=== PATIENT | female | born 1970 | race African-American/Black ===

== ENCOUNTER 2017-10-06 21:31 | Emergency (ER) | payer MEDICAID ==
[~2017-10-06] VITALS: Ht 170.2 cm; Wt 94.0 kg
[2017-10-07 05:49] LABS: *AMPHETAMINES SCREEN URINE NEGATIVE (NEGATIVE); *BARBITURATES SCREEN URINE NEGATIVE (NEGATIVE); *BENZODIAZEPINES SCREEN URINE NEGATIVE (NEGATIVE); *COCAINE SCREEN URINE NEGATIVE (NEGATIVE); CANNABINOID URINE SCREEN NEGATIVE (NEGATIVE); METHADONE URINE SCREEN NEGATIVE (NEGATIVE); OPIATES URINE SCREEN NEGATIVE (NEGATIVE); PHENCYCLIDINE URINE SCREEN NEGATIVE (NEGATIVE)
[2017-10-07 11:26] VITALS: BP 151/92
== END 2017-10-07 11:40 | disposition home or self-care (01) ==
LOC: ER 21:31
DX: R53.83 Other fatigue (principal); Z59.0 Homelessness; Z88.5 Allergy status to narcotic agent
CPT/HCPCS: 80305; 81025; 99283

== ENCOUNTER 2018-04-03 11:29 | Emergency (ER) | payer MEDICAID ==
[~2018-04-03] VITALS: Ht 172.7 cm; Wt 98.0 kg
[2018-04-03 11:40] VITALS: BP 175/99
== END 2018-04-03 17:41 | disposition left against medical advice (07) ==
LOC: ER 11:29
DX: R21 Rash and other nonspecific skin eruption (principal)
CPT/HCPCS: 99281

== ENCOUNTER 2018-08-21 04:30 | Emergency (ER) | payer MEDICAID ==
[~2018-08-21] VITALS: Ht 167.6 cm; Wt 90.0 kg
[2018-08-21] MEDS ORDERED: ACETAMINOPHEN 325MG TABLET PO ONE (06:15)
[2018-08-21 07:30] VITALS: BP 143/94
== END 2018-08-21 08:34 | disposition home or self-care (01) ==
LOC: ER 04:30
DX: M25.512 Pain in left shoulder (principal); M25.511 Pain in right shoulder; J45.909 Unspecified asthma, uncomplicated; I10 Essential (primary) hypertension; Z88.5 Allergy status to narcotic agent
CPT/HCPCS: 99283

== ENCOUNTER 2019-03-03 22:36 | Emergency (ER) | payer MEDICAID ==
[~2019-03-03] VITALS: Ht 167.6 cm; Wt 75.0 kg
[2019-03-04 01:49] LABS: BASOPHILS % 1.4 % (0.0-2.0); EOSINOPHILS % 3.1 % (0.0-5.0); HEMATOCRIT. 38.4 % (36.0-48.0); MEAN CORPUSCULAR HEMOGLOBIN 29.8 pg (28.0-32.0); MEAN PLATELET VOLUME 8.5 fl (7.4-10.4); MONOCYTES % 5.5 % (2.0-8.0); PLATELET 233 x1000/uL (130-400); RED BLOOD CELL COUNT 4.37 mill/uL (4.2-5.4); RED CELL DISTRIBUTION WIDTH 13.7 % (11.6-14.6)
[2019-03-04 01:54] LABS: CHLORIDE 108 mEq/L (98-107)
[2019-03-04] MEDS ORDERED: IBUPROFEN 600MG TABLET PO STA (02:14)
[2019-03-04] MEDS ORDERED: BACITRACIN ZINC OINT UDPKT TOP ONE (02:30)
[2019-03-04 02:43] VITALS: BP 148/74
== END 2019-03-04 02:43 | disposition home or self-care (01) ==
LOC: ER 22:36
DX: M79.89 Other specified soft tissue disorders (principal); M79.605 Pain in left leg; M79.604 Pain in right leg; I10 Essential (primary) hypertension; F14.10 Cocaine abuse, uncomplicated; Z87.891 Personal history of nicotine dependence; Z88.5 Allergy status to narcotic agent
CPT/HCPCS: 36415; 80048; 99283

== ENCOUNTER 2021-08-15 16:05 | Emergency (ER) | payer MEDICAID, OTHER ==
[~2021-08-15] VITALS: Ht 170.2 cm; Wt 120.0 kg
[2021-08-15] MEDS ORDERED: ALBUTEROL (0.083%) 2.5MG/3ML NEB HHN STA (16:28)
[2021-08-15] MEDS ORDERED: METHYLPREDNISOLONE SOD SUCC 125 MG/2 ML VIAL IV STA (16:28)
[2021-08-15] MEDS ORDERED: IPRATROPIUM BROMIDE (0.02%) 0.5MG/2.5ML NEB HHN STA (16:28)
[2021-08-15 17:11] LABS: BASOPHILS % 0.7 % (0.0-2.0); EOSINOPHILS % 2.3 % (0.0-5.0); HEMATOCRIT. 41.6 % (36.0-48.0); HEMOGLOBIN. 13.5 g/dL (12.0-16.0); LYMPHOCYTES % 18.9 % (20.0-50.0); MEAN CORPUSCULAR VOLUME 89.3 fL (81.0-99.0); MEAN PLATELET VOLUME 8.6 fl (7.4-10.4); NEUTROPHILS % 66.1 % (40.0-76.0); PLATELET 183 x1000/uL (130-400); RED BLOOD CELL COUNT 4.66 mill/uL (4.2-5.4); RED CELL DISTRIBUTION WIDTH 14.3 % (11.6-14.6)
[2021-08-15 17:16] LABS: CHLORIDE 107 mEq/L (98-107)
[2021-08-15] MEDS ORDERED: P50 MT (18:44)
[2021-08-15] MEDS ORDERED: ALBU2.5V13 NEB (18:45)
[2021-08-15 19:38] VITALS: BP 175/93
[2021-08-26] MEDS ORDERED: ATEN50TA MT (21:57)
[2021-08-26] MEDS ORDERED: ALBU90AE INH (21:58)
[2021-08-26] MEDS ORDERED: AMLO10TA80 MT (21:58)
[2021-08-26] MEDS ORDERED: BUDE6.9H INH (21:59)
== END 2021-08-15 19:58 | disposition home or self-care (01) ==
LOC: ER 16:05
DX: J45.901 Unspecified asthma with (acute) exacerbation (principal); F17.290 Nicotine dependence, other tobacco product, uncomplicated; J45.909 Unspecified asthma, uncomplicated; I10 Essential (primary) hypertension; Z88.5 Allergy status to narcotic agent; Z20.822 Contact with and (suspected) exposure to COVID-19
CPT/HCPCS: 36415; 71045; 80053; 85025; 87426; 93005; 94644; 96374; 99285; J2930; Z7610

== ENCOUNTER 2022-07-21 19:59 | Emergency (ER) | payer OTHER ==
[~2022-07-21] VITALS: Ht 180.3 cm; Wt 109.0 kg
[~2022-07-21 19:59] MED LIST: ALBU90AE INH; AMLO10TA80 MT; ATEN50TA MT; BUDE6.9H INH
[2022-07-21 20:30] VITALS: BP 116/82
[2022-07-21] MEDS ORDERED: IBUPROFEN 400MG TABLET PO ONE (20:30)
[2022-07-21 22:48] LABS: BASOPHILS % 1.2 % (0.0-2.0); CHLORIDE 105 mEq/L (98-107); EOSINOPHILS % 2.7 % (0.0-5.0); HEMATOCRIT. 38.6 % (36.0-48.0); HEMOGLOBIN. 11.9 g/dL (12.0-16.0); LYMPHOCYTES % 14.1 % (20.0-50.0); MEAN CORPUSCULAR HEMOGLOBIN 25.9 pg (28.0-32.0); MEAN CORPUSCULAR VOLUME 84.4 fL (81.0-99.0); MEAN PLATELET VOLUME 8.8 fl (7.4-10.4); MONOCYTES % 8.8 % (2.0-8.0); NEUTROPHILS % 73.2 % (40.0-76.0); PLATELET 272 x1000/uL (130-400); RED BLOOD CELL COUNT 4.58 mill/uL (4.2-5.4); RED CELL DISTRIBUTION WIDTH 17.2 % (11.6-14.6)
[2022-07-21] MEDS ORDERED: IBUP-2028 MT (23:11)
== END 2022-07-21 23:25 | disposition home or self-care (01) ==
LOC: ER 19:59
DX: M79.604 Pain in right leg (principal); M79.605 Pain in left leg; R07.89 Other chest pain; D64.9 Anemia, unspecified; I11.0 Hypertensive heart disease with heart failure; I50.9 Heart failure, unspecified; J45.909 Unspecified asthma, uncomplicated; Z79.899 Other long term (current) drug therapy
CPT/HCPCS: 36415; 71045; 80053; 83880; 84484; 85025; 85379; 93005; 93970; 99285

== ENCOUNTER 2023-02-21 08:45 | Emergency (ER) | payer OTHER ==
[~2023-02-21] VITALS: Ht 170.2 cm; Wt 142.0 kg
[~2023-02-21 08:45] MED LIST changes: +ALBU6.7H3 INH; -ALBU90AE INH; -AMLO10TA80 MT; +AMLO5TAB88 MT; -ATEN50TA MT; -BUDE6.9H INH
[2023-02-21] MEDS ORDERED: IPRATROPIUM BROMIDE (0.02%) 0.5MG/2.5ML NEB HHN STA (08:53)
[2023-02-21] MEDS ORDERED: PREDNISONE 20MG TABLET PO STA (08:53)
[2023-02-21] MEDS ORDERED: ALBUTEROL (0.083%) 2.5MG/3ML NEB HHN STA (08:53)
[2023-02-21] MEDS ORDERED: ALBU6.7H3 INH (11:16)
[2023-02-21] MEDS ORDERED: P50 MT (11:16)
[2023-02-21] MEDS ORDERED: ALBUTEROL (0.083%) 2.5MG/3ML NEB ONE (11:25)
[2023-02-21] MEDS ORDERED: IPRATROPIUM BROMIDE (0.02%) 0.5MG/2.5ML NEB ONE (11:25)
[2023-02-21] MEDS ORDERED: PREDNISONE 20MG TABLET PO NR (11:30)
[2023-02-21 12:18] VITALS: BP 169/110
== END 2023-02-21 12:18 | disposition home or self-care (01) ==
LOC: ER 08:45
DX: J45.901 Unspecified asthma with (acute) exacerbation (principal); F17.290 Nicotine dependence, other tobacco product, uncomplicated; I10 Essential (primary) hypertension; E11.9 Type 2 diabetes mellitus without complications
CPT/HCPCS: 71045; 94640; 99283; 99406; J7512; Z7610

== ENCOUNTER 2023-04-17 13:34 | Emergency (ER) | payer OTHER ==
[~2023-04-17] VITALS: Ht 167.6 cm; Wt 113.0 kg
[~2023-04-17 13:34] MED LIST changes: +P50 MT
[2023-04-17 14:23] LABS: BASOPHILS % 0.4 % (0.0-2.0); EOSINOPHILS % 0.3 % (0.0-5.0); HEMOGLOBIN. 11.4 g/dL (12.0-16.0); LYMPHOCYTES % 9.6 % (20.0-50.0); MEAN CORPUSCULAR HEMOGLOBIN 26.2 pg (28.0-32.0); MEAN CORPUSCULAR VOLUME 82.9 fL (81.0-99.0); MONOCYTES % 6.2 % (2.0-8.0); NEUTROPHILS % 83.5 % (40.0-76.0); PLATELET 289 x1000/uL (130-400); RED BLOOD CELL COUNT 4.34 mill/uL (4.2-5.4); RED CELL DISTRIBUTION WIDTH 16.6 % (11.6-14.6)
[2023-04-17 14:27] LABS: CHLORIDE 108 mEq/L (98-107)
[2023-04-17 16:37] VITALS: BP 147/94
== END 2023-04-17 16:43 | disposition home or self-care (01) ==
LOC: ER 13:34
DX: R07.89 Other chest pain (principal); J45.909 Unspecified asthma, uncomplicated; E11.9 Type 2 diabetes mellitus without complications; I10 Essential (primary) hypertension; F17.200 Nicotine dependence, unspecified, uncomplicated; F12.10 Cannabis abuse, uncomplicated; F15.10 Other stimulant abuse, uncomplicated
CPT/HCPCS: 36415; 71045; 80053; 83880; 84484; 85025; 93005; 99285

== ENCOUNTER 2023-05-06 13:49 | Emergency (ER) | payer OTHER ==
[~2023-05-06] VITALS: Ht 172.7 cm; Wt 150.0 kg
[2023-05-06] MEDS ORDERED: ALBUTEROL (0.083%) 2.5MG/3ML NEB HHN STA (14:04)
[2023-05-06] MEDS ORDERED: IPRATROPIUM BROMIDE (0.02%) 0.5MG/2.5ML NEB HHN STA (14:04)
[2023-05-06] MEDS ORDERED: ASPIRIN 81MG TABLET PO ONE (14:15)
[2023-05-06 14:56] LABS: BASOPHILS % 1.3 % (0.0-2.0); EOSINOPHILS % 5.1 % (0.0-5.0); HEMATOCRIT. 33.9 % (36.0-48.0); HEMOGLOBIN. 10.9 g/dL (12.0-16.0); LYMPHOCYTES % 15.7 % (20.0-50.0); MEAN CORPUSCULAR HEMOGLOBIN 26.2 pg (28.0-32.0); MEAN CORPUSCULAR VOLUME 81.6 fL (81.0-99.0); MEAN PLATELET VOLUME 8.8 fl (7.4-10.4); MONOCYTES % 8.5 % (2.0-8.0); NEUTROPHILS % 69.4 % (40.0-76.0); PLATELET 294 x1000/uL (130-400); RED BLOOD CELL COUNT 4.15 mill/uL (4.2-5.4); RED CELL DISTRIBUTION WIDTH 17.4 % (11.6-14.6)
[2023-05-06 15:07] LABS: PARTIAL THROMBOPLASTIN TIME 27.1 sec (23.4-31.0); PROTHROMBIN TIME 10.5 sec (9.6-11.0)
[2023-05-06 15:11] LABS: CHLORIDE 109 mEq/L (98-107)
[2023-05-06 15:21] LABS: ETHANOL BLOOD < 10 mg/dL (-10)
[2023-05-06 17:39] LABS: CLARITY URINE CLOUDY (CLEAR); COLOR URINE YELLOW (YELLOW); KETONES URINE TRACE (NEGATIVE); LEUKOCYTE ESTERASE URINE NEGATIVE (NEGATIVE); NITRITE URINE NEGATIVE (NEGATIVE); OCCULT BLOOD URINE 1+ (NEGATIVE); PH URINE 5.5 (4.5-8.0); PROTEIN URINE NEGATIVE (NEGATIVE); SPECIFIC GRAVITY URINE 1.031 (1.005-1.030)
[2023-05-06 17:50] LABS: *AMPHETAMINES SCREEN URINE NEGATIVE (NEGATIVE); *BARBITURATES SCREEN URINE NEGATIVE (NEGATIVE); *BENZODIAZEPINES SCREEN URINE NEGATIVE (NEGATIVE); *COCAINE SCREEN URINE NEGATIVE (NEGATIVE); CANNABINOID URINE SCREEN NEGATIVE (NEGATIVE); METHADONE URINE SCREEN NEGATIVE (NEGATIVE); OPIATES URINE SCREEN NEGATIVE (NEGATIVE); PHENCYCLIDINE URINE SCREEN NEGATIVE (NEGATIVE)
[2023-05-06 18:56] VITALS: BP 174/97
== END 2023-05-06 19:17 | disposition home or self-care (01) ==
LOC: ER 13:52 → CANBEDREQ 18:02 → ER 19:17
DX: R06.02 Shortness of breath (principal); R07.89 Other chest pain; F12.10 Cannabis abuse, uncomplicated; F15.10 Other stimulant abuse, uncomplicated; I11.0 Hypertensive heart disease with heart failure; I50.9 Heart failure, unspecified; E11.9 Type 2 diabetes mellitus without complications; J45.909 Unspecified asthma, uncomplicated; Z20.822 Contact with and (suspected) exposure to COVID-19
CPT/HCPCS: 36415; 71045; 80053; 80305; 80320; 81003; 83690; 83880; 84484; 85025; 85379; 85610; 85730; 87040; 87426; 87804; 93005; 94640; 99285; C9803; Z7610; G0480

== ENCOUNTER 2023-05-27 13:23 | Emergency (ER) | payer OTHER ==
[~2023-05-27] VITALS: Ht 167.6 cm; Wt 150.0 kg
[~2023-05-27 13:23] MED LIST changes: +ALBU18HF2 IH; -ALBU6.7H3 INH; +FLUT1DIS3 INH; +METF-414 MT
[2023-05-27 13:26] VITALS: BP 135/93; TEMP 97.3
[2023-05-27] MEDS ORDERED: PREDNISONE 20MG TABLET PO STA (13:31)
[2023-05-27] MEDS ORDERED: IPRATROPIUM BROMIDE (0.02%) 0.5MG/2.5ML NEB HHN STA (13:31)
[2023-05-27] MEDS ORDERED: ALBUTEROL (0.083%) 2.5MG/3ML NEB HHN STA (13:31)
[2023-05-27 15:15] VITALS: PULSE 85; RESP 20; O2SAT 97
[2023-05-27 15:29] LABS: CHLORIDE 109 mEq/L (98-107); INDEX HEMOLYSI 1 (1-3); INDEX ICTERIC 1 (1-4); INDEX LIPEMIC 1 (1-3); POTASSIUM 3.6 mEq/L (3.5-5.1); SODIUM 140 mEq/L (136-145)
[2023-05-27 15:38] LABS: ALANINE AMINOTRANSFERASE 30 IU/L (13-61); ASPARTATE AMINOTRANSFERASE 15 IU/L (15-37); BILIRUBIN TOTAL 0.2 mg/dL (0.1-1.0); CALCIUM 8.4 mg/dL (8.5-10.1); CARBON DIOXIDE 29 mEq/L (21-32); CREATININE 0.6 mg/dL (0.6-1.3); GLUCOSE 138 mg/dL (70-105); NT PRO B-TYPE NATRIURETIC PEP 13 pg/mL (5-125); PROTEIN TOTAL 6.5 g/dL (6.0-8.3); TROPONIN I HIGH SENSITIVITY 48 ng/L (<54); UREA NITROGEN BLOOD 10 mg/dL (7-21)
[2023-05-27 16:46] LABS: CLARITY URINE CLOUDY (CLEAR); COLOR URINE YELLOW (YELLOW); GLUCOSE URINE NEGATIVE (NEGATIVE); KETONES URINE NEGATIVE (NEGATIVE); LEUKOCYTE ESTERASE URINE NEGATIVE (NEGATIVE); NITRITE URINE NEGATIVE (NEGATIVE); OCCULT BLOOD URINE NEGATIVE (NEGATIVE); PROTEIN URINE TRACE (NEGATIVE); SPECIFIC GRAVITY URINE 1.027 (1.005-1.030); UROBILINOGEN URINE 0.2 E.U./dL (0.2-1.0)
[2023-05-27 17:08] LABS: BASOPHILS % 0.2 % (0.0-2.0); EOSINOPHILS % 8.4 % (0.0-5.0); HEMATOCRIT. 35.9 % (36.0-48.0); HEMOGLOBIN. 11.2 g/dL (12.0-16.0); LYMPHOCYTES % 15.4 % (20.0-50.0); MEAN CORPUSCULAR HEMOGLOBIN 26.2 pg (28.0-32.0); MEAN CORPUSCULAR HGB CONC 31.1 g/dL (31.0-37.0); MEAN CORPUSCULAR VOLUME 84.3 fL (81.0-99.0); MEAN PLATELET VOLUME 8.8 fl (7.4-10.4); MONOCYTES % 11.1 % (2.0-8.0); NEUTROPHILS % 64.9 % (40.0-76.0); PLATELET 210 x1000/uL (130-400); RED BLOOD CELL COUNT 4.26 mill/uL (4.2-5.4); RED CELL DISTRIBUTION WIDTH 16.2 % (11.6-14.6); WHITE BLOOD COUNT 8.1 x1000/uL (4.5-11.0)
[2023-05-27 17:19] LABS: BACTERIA URINE 3+; RBC URINE 0-2 /hpf (0-2); SQUAMOUS EPITHELIAL CELL URINE 2+ /lpf (RARE/1+); WBC URINE 0-2 /hpf (0-2)
[2023-05-27] MEDS ORDERED: P50 MT (17:32)
[2023-05-27] MEDS ORDERED: ALBU6.7H3 INH (17:32)
[2023-06-07] MEDS ORDERED: P50 MT (03:03)
[2023-06-07] MEDS ORDERED: AZIT250T MT (03:03)
[2023-06-07] MEDS ORDERED: ALBU6.7H3 INH (03:03)
== END 2023-05-27 18:17 | disposition home or self-care (01) ==
LOC: ER 13:23
DX: J45.901 Unspecified asthma with (acute) exacerbation (principal); F14.10 Cocaine abuse, uncomplicated; E11.9 Type 2 diabetes mellitus without complications; I10 Essential (primary) hypertension; J45.909 Unspecified asthma, uncomplicated; Z88.5 Allergy status to narcotic agent; Z79.899 Other long term (current) drug therapy
CPT/HCPCS: 80053; 81003; 81025; 83880; 85025; 84484; 36415; 71045; 94640; 93005; 99285; Z7610 ×3; 94664

== ENCOUNTER 2023-06-14 10:51 | Emergency (ER) | payer OTHER ==
[~2023-06-14] VITALS: Ht 167.6 cm; Wt 149.0 kg
[~2023-06-14 10:51] MED LIST changes: +ALBU6.7H3 INH; +AZIT250T MT
[2023-06-14 10:57] VITALS: BP 143/76; PULSE 112; RESP 16; TEMP 98.2; O2SAT 98
[2023-06-14 11:31] LABS: BASOPHILS % 0.7 % (0.0-2.0); EOSINOPHILS % 4.4 % (0.0-5.0); HEMATOCRIT. 34.5 % (36.0-48.0); HEMOGLOBIN. 11.1 g/dL (12.0-16.0); LYMPHOCYTES % 15.4 % (20.0-50.0); MEAN CORPUSCULAR HEMOGLOBIN 26.1 pg (28.0-32.0); MEAN CORPUSCULAR VOLUME 80.8 fL (81.0-99.0); MEAN PLATELET VOLUME 8.9 fl (7.4-10.4); MONOCYTES % 8.3 % (2.0-8.0); NEUTROPHILS % 71.2 % (40.0-76.0); PLATELET 252 x1000/uL (130-400); RED BLOOD CELL COUNT 4.27 mill/uL (4.2-5.4); RED CELL DISTRIBUTION WIDTH 15.6 % (11.6-14.6)
[2023-06-14 12:22] LABS: CHLORIDE 105 mEq/L (98-107)
[2023-06-14 12:35] LABS: ETHANOL BLOOD < 10 mg/dL (-10)
[2023-06-14 14:55] LABS: *AMPHETAMINES SCREEN URINE NEGATIVE (NEGATIVE); *BARBITURATES SCREEN URINE NEGATIVE (NEGATIVE); *BENZODIAZEPINES SCREEN URINE NEGATIVE (NEGATIVE); *COCAINE SCREEN URINE NEGATIVE (NEGATIVE); CANNABINOID URINE SCREEN NEGATIVE (NEGATIVE); METHADONE URINE SCREEN NEGATIVE (NEGATIVE); OPIATES URINE SCREEN NEGATIVE (NEGATIVE); PHENCYCLIDINE URINE SCREEN NEGATIVE (NEGATIVE)
== END 2023-06-14 15:53 | disposition home or self-care (01) ==
LOC: ER 10:53
DX: R07.89 Other chest pain (principal); F14.10 Cocaine abuse, uncomplicated; I10 Essential (primary) hypertension; E11.9 Type 2 diabetes mellitus without complications; J45.909 Unspecified asthma, uncomplicated; Z88.5 Allergy status to narcotic agent; Z79.899 Other long term (current) drug therapy
CPT/HCPCS: 36415; 71045; 80053; 80305; 80320; 81025; 83880; 84484; 85025; 93005; 99291; G0480

== ENCOUNTER 2023-07-16 19:18 | Emergency (ER) | payer OTHER ==
[~2023-07-16] VITALS: Ht 170.2 cm; Wt 132.0 kg
[2023-07-16 19:24] VITALS: TEMP 98.4; O2SAT 96
[2023-07-16] MEDS ORDERED: ASPIRIN 325MG EC TABLET PO ONE (19:45)
[2023-07-16 20:14] LABS: BASOPHILS % 1.1 % (0.0-2.0); EOSINOPHILS % 3.2 % (0.0-5.0); HEMATOCRIT. 35.6 % (36.0-48.0); HEMOGLOBIN. 11.3 g/dL (12.0-16.0); LYMPHOCYTES % 14.3 % (20.0-50.0); MEAN CORPUSCULAR HEMOGLOBIN 25.8 pg (28.0-32.0); MEAN CORPUSCULAR HGB CONC 31.7 g/dL (31.0-37.0); MEAN CORPUSCULAR VOLUME 81.4 fL (81.0-99.0); MONOCYTES % 7.7 % (2.0-8.0); NEUTROPHILS % 73.7 % (40.0-76.0); PLATELET 280 x1000/uL (130-400); RED BLOOD CELL COUNT 4.37 mill/uL (4.2-5.4); RED CELL DISTRIBUTION WIDTH 15.8 % (11.6-14.6); WHITE BLOOD COUNT 10.8 x1000/uL (4.5-11.0)
[2023-07-16 20:29] LABS: CHLORIDE 105 mEq/L (98-107); INDEX HEMOLYSI 1 (1-3); INDEX ICTERIC 1 (1-4); INDEX LIPEMIC 1 (1-3); POTASSIUM 3.6 mEq/L (3.5-5.1); SODIUM 138 mEq/L (136-145)
[2023-07-16 20:36] LABS: ALANINE AMINOTRANSFERASE 23 IU/L (13-61); ASPARTATE AMINOTRANSFERASE 9 IU/L (15-37); BILIRUBIN TOTAL 0.2 mg/dL (0.1-1.0); CARBON DIOXIDE 29 mEq/L (21-32); CREATININE 0.7 mg/dL (0.6-1.3); GLUCOSE 132 mg/dL (70-105); NT PRO B-TYPE NATRIURETIC PEP 39 pg/mL (5-125); PROTEIN TOTAL 6.5 g/dL (6.0-8.3); TROPONIN I HIGH SENSITIVITY 39 ng/L (<54); UREA NITROGEN BLOOD 15 mg/dL (7-21)
[2023-07-16] MEDS ORDERED: IBUP-1525 MT (22:21)
[2023-07-16] MEDS ORDERED: TOPUD MT (22:21)
[2023-07-16 23:01] VITALS: BP 124/82; PULSE 75; RESP 18
== END 2023-07-16 23:03 | disposition home or self-care (01) ==
LOC: ER 19:18
DX: J39.8 Other specified diseases of upper respiratory tract (principal); R59.0 Localized enlarged lymph nodes; Z88.5 Allergy status to narcotic agent; J45.909 Unspecified asthma, uncomplicated; E11.9 Type 2 diabetes mellitus without complications; I10 Essential (primary) hypertension; F14.90 Cocaine use, unspecified, uncomplicated
CPT/HCPCS: 36415; 71045; 80053; 83880; 84484; 85025; 93005; 99285

== ENCOUNTER 2023-07-19 17:18 | Emergency (ER) | payer OTHER ==
[~2023-07-19] VITALS: Ht 172.7 cm; Wt 127.0 kg
[~2023-07-19 17:18] MED LIST changes: +IBUP-1525 MT; +TOPUD MT
[2023-07-19 17:27] VITALS: TEMP 98.5; O2SAT 98
[2023-07-19 18:27] LABS: BASOPHILS % 0.5 % (0.0-2.0); HEMATOCRIT. 33.5 % (36.0-48.0); HEMOGLOBIN. 10.5 g/dL (12.0-16.0); LYMPHOCYTES % 15.4 % (20.0-50.0); MEAN CORPUSCULAR HEMOGLOBIN 25.3 pg (28.0-32.0); MEAN CORPUSCULAR HGB CONC 31.3 g/dL (31.0-37.0); MEAN CORPUSCULAR VOLUME 80.7 fL (81.0-99.0); MEAN PLATELET VOLUME 8.7 fl (7.4-10.4); MONOCYTES % 9.9 % (2.0-8.0); NEUTROPHILS % 70.2 % (40.0-76.0); PLATELET 244 x1000/uL (130-400); RED BLOOD CELL COUNT 4.15 mill/uL (4.2-5.4); RED CELL DISTRIBUTION WIDTH 16.2 % (11.6-14.6); WHITE BLOOD COUNT 7.9 x1000/uL (4.5-11.0)
[2023-07-19 18:53] LABS: CHLORIDE 110 mEq/L (98-107); INDEX HEMOLYSI 1 (1-3); INDEX ICTERIC 1 (1-4); INDEX LIPEMIC 1 (1-3); POTASSIUM 3.7 mEq/L (3.5-5.1); SODIUM 141 mEq/L (136-145)
[2023-07-19 19:03] LABS: ALANINE AMINOTRANSFERASE 22 IU/L (13-61); ALBUMIN 2.9 g/dL (3.4-5.0); ASPARTATE AMINOTRANSFERASE 11 IU/L (15-37); BILIRUBIN TOTAL 0.2 mg/dL (0.1-1.0); CALCIUM 7.6 mg/dL (8.5-10.1); CARBON DIOXIDE 30 mEq/L (21-32); CREATININE 0.7 mg/dL (0.6-1.3); GLUCOSE 180 mg/dL (70-105); PROTEIN TOTAL 6.2 g/dL (6.0-8.3); TROPONIN I HIGH SENSITIVITY 33 ng/L (<54); UREA NITROGEN BLOOD 9 mg/dL (7-21)
[2023-07-19 21:40] LABS: ETHANOL BLOOD < 10 mg/dL (-10); NT PRO B-TYPE NATRIURETIC PEP 18 pg/mL (5-125)
[2023-07-20 02:01] VITALS: BP 168/100; PULSE 104; RESP 18
[2023-07-21] MEDS ORDERED: NAPR-1129 MT (19:32)
[2023-07-21] MEDS ORDERED: SULF1TAB48 MT (20:22)
== END 2023-07-20 02:02 | disposition home or self-care (01) ==
LOC: ER 17:18
DX: R22.2 Localized swelling, mass and lump, trunk (principal); J45.909 Unspecified asthma, uncomplicated; E11.9 Type 2 diabetes mellitus without complications; I10 Essential (primary) hypertension; Z88.5 Allergy status to narcotic agent; Z59.00 Homelessness unspecified
CPT/HCPCS: 36415; 80053; 80320; 83880; 84484; 85025; 85379; 93005; 99284; G0480

== ENCOUNTER 2023-07-21 18:29 | Emergency (ER) | payer OTHER ==
[~2023-07-21] VITALS: Ht 167.6 cm; Wt 122.0 kg
[2023-07-21 18:53] VITALS: BP 139/85; PULSE 84; RESP 18; O2SAT 99
[2023-07-21] MEDS ORDERED: ACETAMINOPHEN 325MG TABLET PO ONE (19:15)
[2023-07-21] MEDS ORDERED: NAPR-1129 MT (19:32)
[2023-07-21 19:58] VITALS: TEMP 98.2
[2023-07-21] MEDS ORDERED: SULF1TAB48 MT (20:22)
[2023-07-21 20:43] LABS: CHLORIDE 112 mEq/L (98-107); INDEX HEMOLYSI 1 (1-3); INDEX ICTERIC 1 (1-4); INDEX LIPEMIC 1 (1-3); POTASSIUM 3.5 mEq/L (3.5-5.1); SODIUM 141 mEq/L (136-145)
[2023-07-21 20:50] LABS: ALANINE AMINOTRANSFERASE 22 IU/L (13-61); ALBUMIN 3.1 g/dL (3.4-5.0); ASPARTATE AMINOTRANSFERASE 10 IU/L (15-37); BILIRUBIN TOTAL 0.2 mg/dL (0.1-1.0); CALCIUM 8.1 mg/dL (8.5-10.1); CARBON DIOXIDE 29 mEq/L (21-32); CREATININE 0.7 mg/dL (0.6-1.3); GLUCOSE 119 mg/dL (70-105); PROTEIN TOTAL 6.5 g/dL (6.0-8.3); UREA NITROGEN BLOOD 10 mg/dL (7-21)
[2023-07-21 20:53] LABS: BASOPHILS % 0.7 % (0.0-2.0); EOSINOPHILS % 3.5 % (0.0-5.0); HEMOGLOBIN. 10.4 g/dL (12.0-16.0); LYMPHOCYTES % 16.1 % (20.0-50.0); MEAN CORPUSCULAR HEMOGLOBIN 25.4 pg (28.0-32.0); MEAN CORPUSCULAR HGB CONC 31.4 g/dL (31.0-37.0); MEAN CORPUSCULAR VOLUME 81.1 fL (81.0-99.0); MEAN PLATELET VOLUME 9.1 fl (7.4-10.4); MONOCYTES % 10.9 % (2.0-8.0); NEUTROPHILS % 68.8 % (40.0-76.0); PLATELET 222 x1000/uL (130-400); RED BLOOD CELL COUNT 4.08 mill/uL (4.2-5.4); RED CELL DISTRIBUTION WIDTH 16.2 % (11.6-14.6); WHITE BLOOD COUNT 8.5 x1000/uL (4.5-11.0)
== END 2023-07-21 20:34 | disposition home or self-care (01) ==
LOC: ER 18:29
DX: M79.604 Pain in right leg (principal); M79.605 Pain in left leg; R60.9 Edema, unspecified; R59.0 Localized enlarged lymph nodes; J45.909 Unspecified asthma, uncomplicated; E11.9 Type 2 diabetes mellitus without complications; I10 Essential (primary) hypertension; F14.10 Cocaine abuse, uncomplicated; Z79.899 Other long term (current) drug therapy
CPT/HCPCS: 36415; 80053; 85025; 93970; 99284

== ENCOUNTER 2023-07-27 20:11 | Emergency (ER) | payer OTHER ==
[~2023-07-27] VITALS: Ht 162.6 cm; Wt 114.0 kg
[~2023-07-27 20:11] MED LIST changes: +NAPR-1129 MT; +SULF1TAB48 MT
[2023-07-27 21:28] LABS: HEMATOCRIT. 35.3 % (36.0-48.0); HEMOGLOBIN. 11.1 g/dL (12.0-16.0); MEAN CORPUSCULAR HEMOGLOBIN 25.7 pg (28.0-32.0); MEAN CORPUSCULAR HGB CONC 31.4 g/dL (31.0-37.0); MEAN CORPUSCULAR VOLUME 81.7 fL (81.0-99.0); MEAN PLATELET VOLUME 9.5 fl (7.4-10.4); PLATELET 303 x1000/uL (130-400); RED BLOOD CELL COUNT 4.32 mill/uL (4.2-5.4); RED CELL DISTRIBUTION WIDTH 16.8 % (11.6-14.6); WHITE BLOOD COUNT 12.8 x1000/uL (4.5-11.0)
[2023-07-27 21:32] LABS: DIFFERENTIAL COMMENT 1
[2023-07-27 21:37] LABS: CHLORIDE 103 mEq/L (98-107); INDEX HEMOLYSI 1 (1-3); INDEX ICTERIC 1 (1-4); INDEX LIPEMIC 1 (1-3); POTASSIUM 3.7 mEq/L (3.5-5.1); SODIUM 134 mEq/L (136-145)
[2023-07-27 21:49] LABS: ALANINE AMINOTRANSFERASE 19 IU/L (13-61); ALBUMIN 3.3 g/dL (3.4-5.0); ASPARTATE AMINOTRANSFERASE 13 IU/L (15-37); BILIRUBIN TOTAL 0.3 mg/dL (0.1-1.0); CALCIUM 9.1 mg/dL (8.5-10.1); CARBON DIOXIDE 24 mEq/L (21-32); CREATININE 0.6 mg/dL (0.6-1.3); ETHANOL BLOOD < 10 mg/dL (-10); GLUCOSE 398 mg/dL (70-105); NT PRO B-TYPE NATRIURETIC PEP 134 pg/mL (5-125); PROTEIN TOTAL 7.3 g/dL (6.0-8.3); TROPONIN I HIGH SENSITIVITY 40 ng/L (<54); UREA NITROGEN BLOOD 14 mg/dL (7-21)
[2023-07-27 22:06] LABS: PLATELET ESTIMATE NORMAL
[2023-07-27] MEDS ORDERED: ALBUTEROL (0.083%) 2.5MG/3ML NEB HHN STA (23:13)
[2023-07-27] MEDS ORDERED: IPRATROPIUM BROMIDE (0.02%) 0.5MG/2.5ML NEB HHN STA (23:13)
[2023-07-27 23:19] LABS: TROPONIN I HIGH SENSITIVITY 43 ng/L (<54)
[2023-07-28 01:53] VITALS: PULSE 109; RESP 23; O2SAT 97
[2023-07-28] MEDS: IPRATROPIUM BROMIDE (0.02%) 0.5MG/2.5ML NEB HHN NR ×2 (01:53→05:36)
[2023-07-28] MEDS: ALBUTEROL (0.083%) 2.5MG/3ML NEB HHN NR ×2 (01:53→05:36)
[2023-07-28 01:56] LABS: CLARITY URINE CLEAR (CLEAR); COLOR URINE YELLOW (YELLOW); GLUCOSE URINE 3+ (NEGATIVE); KETONES URINE NEGATIVE (NEGATIVE); LEUKOCYTE ESTERASE URINE NEGATIVE (NEGATIVE); NITRITE URINE NEGATIVE (NEGATIVE); OCCULT BLOOD URINE NEGATIVE (NEGATIVE); PROTEIN URINE NEGATIVE (NEGATIVE); SPECIFIC GRAVITY URINE 1.043 (1.005-1.030)
[2023-07-28 01:58] LABS: BACTERIA URINE NONE SEEN; RBC URINE 0-2 /hpf (0-2); YEAST URINE NONE SEEN
[2023-07-28 02:08] LABS: *AMPHETAMINES SCREEN URINE NEGATIVE (NEGATIVE); *BARBITURATES SCREEN URINE NEGATIVE (NEGATIVE); *BENZODIAZEPINES SCREEN URINE NEGATIVE (NEGATIVE); *COCAINE SCREEN URINE NEGATIVE (NEGATIVE); CANNABINOID URINE SCREEN NEGATIVE (NEGATIVE); ECSTASY MDMA SCREEN URINE NEGATIVE (NEGATIVE); METHADONE URINE SCREEN NEGATIVE (NEGATIVE); OPIATES URINE SCREEN NEGATIVE (NEGATIVE); PHENCYCLIDINE URINE SCREEN NEGATIVE (NEGATIVE)
[2023-07-28 02:51] LABS: SQUAMOUS EPITHELIAL CELL URINE FEW /lpf (RARE/1+)
[2023-07-28 02:52] LABS: WBC URINE 0-2 /hpf (0-2)
[2023-07-28] MEDS ORDERED: IOHEXOL-350 100 ML BOTTLE ONE (03:53)
[2023-07-28] MEDS ORDERED: ALBUTEROL (0.083%) 2.5MG/3ML NEB HHN ONE (05:15)
[2023-07-28 05:36] VITALS: PULSE 102; RESP 22; O2SAT 95
[2023-07-28 10:46] VITALS: BP 162/64; PULSE 97; RESP 19; TEMP 98.7
== END 2023-07-28 10:53 | disposition short-term general hospital (02) ==
LOC: ER 20:11 → CANBEDREQ 07-28 10:58
DX: J45.901 Unspecified asthma with (acute) exacerbation (principal); R00.0 Tachycardia, unspecified; R59.0 Localized enlarged lymph nodes; E11.65 Type 2 diabetes mellitus with hyperglycemia; R53.1 Weakness; F41.9 Anxiety disorder, unspecified; I10 Essential (primary) hypertension; Z88.5 Allergy status to narcotic agent; Z79.899 Other long term (current) drug therapy
CPT/HCPCS: 80053; 80320; 83880; 85025; 84484; 36415; 71045; 94640; 93005; 99285; 80305; 81003; 81025; 82962; 71275; Z7610 ×4; Q9967; G0480

== ENCOUNTER 2023-08-06 23:35 | Emergency (ER) | payer OTHER ==
[~2023-08-06] VITALS: Ht 167.6 cm; Wt 165.0 kg
[2023-08-06 23:39] VITALS: O2SAT 100
[2023-08-07] MEDS ORDERED: ACETAMINOPHEN 325MG TABLET PO ONE (00:30)
[2023-08-07 01:07] LABS: BASOPHILS % 0.3 % (0.0-2.0); DIFFERENTIAL COMMENT 0; EOSINOPHILS % 0.6 % (0.0-5.0); HEMATOCRIT. 37.3 % (36.0-48.0); HEMOGLOBIN. 11.4 g/dL (12.0-16.0); LYMPHOCYTES % 9.8 % (20.0-50.0); MEAN CORPUSCULAR HEMOGLOBIN 25.2 pg (28.0-32.0); MEAN CORPUSCULAR HGB CONC 30.6 g/dL (31.0-37.0); MEAN CORPUSCULAR VOLUME 82.4 fL (81.0-99.0); MEAN PLATELET VOLUME 9.2 fl (7.4-10.4); MONOCYTES % 9.2 % (2.0-8.0); NEUTROPHILS % 80.1 % (40.0-76.0); PLATELET 192 x1000/uL (130-400); RED BLOOD CELL COUNT 4.53 mill/uL (4.2-5.4); RED CELL DISTRIBUTION WIDTH 16.8 % (11.6-14.6); WHITE BLOOD COUNT 13.4 x1000/uL (4.5-11.0)
[2023-08-07 01:22] LABS: CALCIUM 7.5 mg/dL (8.5-10.1); CHLORIDE 106 mEq/L (98-107); INDEX HEMOLYSI 1 (1-3); INDEX ICTERIC 1 (1-4); INDEX LIPEMIC 1 (1-3); POTASSIUM 3.3 mEq/L (3.5-5.1); SODIUM 135 mEq/L (136-145)
[2023-08-07 01:28] LABS: HCG SCREEN NEGATIVE
[2023-08-07 01:55] LABS: ALANINE AMINOTRANSFERASE 33 IU/L (13-61); ALBUMIN 2.9 g/dL (3.4-5.0); ASPARTATE AMINOTRANSFERASE 8 IU/L (15-37); BILIRUBIN TOTAL 0.3 mg/dL (0.1-1.0); CARBON DIOXIDE 29 mEq/L (21-32); CREATININE 0.5 mg/dL (0.6-1.3); PROTEIN TOTAL 5.8 g/dL (6.0-8.3); TROPONIN I HIGH SENSITIVITY 43 ng/L (<54); UREA NITROGEN BLOOD 17 mg/dL (7-21)
[2023-08-07 02:11] LABS: GLUCOSE 402 mg/dL (70-105)
[2023-08-07] MEDS ORDERED: POTASSIUM CHLORIDE 20MEQ/PACKET PO NR (02:15)
[2023-08-07] MEDS ORDERED: INSULIN REGULAR (HUMULIN R) 300UNITS/3ML VIAL SUBCUT NR (03:15)
[2023-08-07] MEDS ORDERED: CEFTRIAXONE 1GM PREMIX 50 ML IV ONE (04:30)
[2023-08-07] MEDS ORDERED: CEFTRIAXONE 1GM PREMIX 50 ML IV NR (04:30)
[2023-08-07 05:39] LABS: CLARITY URINE CLEAR (CLEAR); COLOR URINE YELLOW (YELLOW); GLUCOSE URINE 3+ (NEGATIVE); KETONES URINE NEGATIVE (NEGATIVE); LEUKOCYTE ESTERASE URINE TRACE (NEGATIVE); NITRITE URINE NEGATIVE (NEGATIVE); OCCULT BLOOD URINE 2+ (NEGATIVE); PROTEIN URINE NEGATIVE (NEGATIVE); SPECIFIC GRAVITY URINE 1.028 (1.005-1.030)
[2023-08-07 07:24] LABS: SQUAMOUS EPITHELIAL CELL URINE FEW /lpf (RARE/1+)
[2023-08-07 07:25] LABS: WBC URINE 0-2 /hpf (0-2)
[2023-08-07 07:27] LABS: BACTERIA URINE TRACE
[2023-08-07 07:28] LABS: YEAST URINE FEW BUDDING YEASTS
[2023-08-07 09:18] VITALS: BP 149/94; PULSE 99; RESP 17; TEMP 98.9
== END 2023-08-07 09:45 | disposition short-term general hospital (02) ==
LOC: ER 23:35
DX: E11.65 Type 2 diabetes mellitus with hyperglycemia (principal); J18.9 Pneumonia, unspecified organism; I10 Essential (primary) hypertension; F14.10 Cocaine abuse, uncomplicated; F15.10 Other stimulant abuse, uncomplicated; Z79.899 Other long term (current) drug therapy
CPT/HCPCS: 99285; 80053; 81003; 82962; 84703; 85025; 84484; 36415; 71045; 93005; 96372; J1815; Z7610

== ENCOUNTER 2023-08-11 23:32 | Emergency (ER) | payer OTHER ==
[~2023-08-11] VITALS: Ht 162.6 cm; Wt 140.0 kg
[2023-08-11 23:37] VITALS: O2SAT 97
[2023-08-12 06:15] LABS: BASOPHILS % 1.3 % (0.0-2.0); HEMATOCRIT. 38.3 % (36.0-48.0); HEMOGLOBIN. 12.1 g/dL (12.0-16.0); MEAN CORPUSCULAR HEMOGLOBIN 25.9 pg (28.0-32.0); MEAN CORPUSCULAR HGB CONC 31.7 g/dL (31.0-37.0); MEAN CORPUSCULAR VOLUME 81.6 fL (81.0-99.0); MEAN PLATELET VOLUME 8.6 fl (7.4-10.4); MONOCYTES % 14.7 % (2.0-8.0); PLATELET 182 x1000/uL (130-400); WHITE BLOOD COUNT 5.2 x1000/uL (4.5-11.0)
[2023-08-12 06:27] LABS: CLARITY URINE CLOUDY (CLEAR); COLOR URINE DARK YELLOW (YELLOW); GLUCOSE URINE TRACE (NEGATIVE); KETONES URINE NEGATIVE (NEGATIVE); LEUKOCYTE ESTERASE URINE 2+ (NEGATIVE); NITRITE URINE NEGATIVE (NEGATIVE); OCCULT BLOOD URINE 1+ (NEGATIVE); PH URINE 5.5 (4.5-8.0); PROTEIN URINE 1+ (NEGATIVE); SPECIFIC GRAVITY URINE 1.026 (1.005-1.030)
[2023-08-12 06:27] LABS: CHLORIDE 108 mEq/L (98-107); INDEX HEMOLYSI 1 (1-3); INDEX ICTERIC 1 (1-4); INDEX LIPEMIC 1 (1-3); POTASSIUM 3.4 mEq/L (3.5-5.1); SODIUM 139 mEq/L (136-145)
[2023-08-12 06:30] LABS: SQUAMOUS EPITHELIAL CELL URINE 1+ /lpf (RARE/1+); YEAST URINE NONE SEEN
[2023-08-12 06:36] LABS: ALANINE AMINOTRANSFERASE 35 IU/L (13-61); ALBUMIN 3.3 g/dL (3.4-5.0); ASPARTATE AMINOTRANSFERASE 12 IU/L (15-37); BILIRUBIN TOTAL 0.4 mg/dL (0.1-1.0); CALCIUM 8.3 mg/dL (8.5-10.1); CARBON DIOXIDE 29 mEq/L (21-32); CREATININE 0.5 mg/dL (0.6-1.3); GLUCOSE 200 mg/dL (70-105); PROTEIN TOTAL 6.8 g/dL (6.0-8.3); TROPONIN I HIGH SENSITIVITY 37 ng/L (<54); UREA NITROGEN BLOOD 10 mg/dL (7-21)
[2023-08-12 06:39] LABS: HCG SCREEN NEGATIVE
[2023-08-12 08:36] LABS: WBC URINE 50-100 /hpf (0-2)
[2023-08-12 08:38] LABS: BACTERIA URINE NONE SEEN
[2023-08-12] MEDS ORDERED: CEFTRIAXONE 1GM PREMIX 50 ML IV ONE (09:15)
[2023-08-12] MEDS ORDERED: CEFTRIAXONE 1GM PREMIX 50 ML IV NR (12:09)
[2023-08-12 12:44] VITALS: BP 137/84; PULSE 86; RESP 19; TEMP 98.1
== END 2023-08-12 13:11 | disposition short-term general hospital (02) ==
LOC: ER 23:32
DX: R07.89 Other chest pain (principal); N39.0 Urinary tract infection, site not specified; F14.10 Cocaine abuse, uncomplicated; F12.10 Cannabis abuse, uncomplicated; E11.9 Type 2 diabetes mellitus without complications; I10 Essential (primary) hypertension; J45.909 Unspecified asthma, uncomplicated; Z20.822 Contact with and (suspected) exposure to COVID-19; Z88.5 Allergy status to narcotic agent; Z79.899 Other long term (current) drug therapy
CPT/HCPCS: 99285; 87426; 80053; 81003; 84703; 85025; 87086; 84484; 36415; 96365; 71045; C9803; J0696

== ENCOUNTER 2023-08-25 16:50 | Emergency (ER) | payer OTHER ==
[~2023-08-25] VITALS: Ht 170.2 cm; Wt 150.0 kg
[~2023-08-25 16:50] MED LIST changes: -SULF1TAB48 MT
[2023-08-25] MEDS ORDERED: ONDANSETRON HCL 4MG/2ML INJ IV STA (17:24)
[2023-08-25] MEDS ORDERED: SODIUM CHLORIDE 0.9% 1,000 ML IV ONE (17:30)
[2023-08-25 18:07] LABS: BASOPHILS % 0.8 % (0.0-2.0); EOSINOPHILS % 3.6 % (0.0-5.0); HEMATOCRIT. 35.3 % (36.0-48.0); HEMOGLOBIN. 11.1 g/dL (12.0-16.0); LYMPHOCYTES % 15.1 % (20.0-50.0); MEAN CORPUSCULAR HEMOGLOBIN 25.5 pg (28.0-32.0); MEAN CORPUSCULAR HGB CONC 31.4 g/dL (31.0-37.0); MEAN CORPUSCULAR VOLUME 81.3 fL (81.0-99.0); MEAN PLATELET VOLUME 8.3 fl (7.4-10.4); MONOCYTES % 12.3 % (2.0-8.0); NEUTROPHILS % 68.2 % (40.0-76.0); PLATELET 318 x1000/uL (130-400); RED BLOOD CELL COUNT 4.34 mill/uL (4.2-5.4); RED CELL DISTRIBUTION WIDTH 16.9 % (11.6-14.6); WHITE BLOOD COUNT 7.9 x1000/uL (4.5-11.0)
[2023-08-25 18:16] LABS: CHLORIDE 101 mEq/L (98-107); INDEX HEMOLYSI 1 (1-3); INDEX ICTERIC 1 (1-4); INDEX LIPEMIC 1 (1-3); POTASSIUM 3.6 mEq/L (3.5-5.1); SODIUM 135 mEq/L (136-145)
[2023-08-25 18:21] LABS: HCG SCREEN NEGATIVE
[2023-08-25 18:23] LABS: ALANINE AMINOTRANSFERASE 24 IU/L (13-61); ASPARTATE AMINOTRANSFERASE 12 IU/L (15-37); BILIRUBIN TOTAL 0.3 mg/dL (0.1-1.0); CALCIUM 8.3 mg/dL (8.5-10.1); CARBON DIOXIDE 28 mEq/L (21-32); CREATININE 0.8 mg/dL (0.6-1.3); GLUCOSE 246 mg/dL (70-105); PROTEIN TOTAL 6.8 g/dL (6.0-8.3); UREA NITROGEN BLOOD 19 mg/dL (7-21)
[2023-08-25 19:37] VITALS: TEMP 98.5; O2SAT 95
[2023-08-25] MEDS ORDERED: ONDANSETRON HCL 4MG/2ML INJ ONE (20:54)
[2023-08-26] MEDS ORDERED: IOHEXOL-300 100 ML BOTTLE ONE (00:01)
[2023-08-26] MEDS ORDERED: ACET-2708 MT (02:37)
[2023-08-26 03:30] VITALS: BP 139/76; PULSE 94; RESP 18
== END 2023-08-26 04:15 | disposition home or self-care (01) ==
LOC: ER 16:50
DX: C80.1 Malignant (primary) neoplasm, unspecified (principal); J45.909 Unspecified asthma, uncomplicated; E11.9 Type 2 diabetes mellitus without complications; I10 Essential (primary) hypertension; Z79.899 Other long term (current) drug therapy
CPT/HCPCS: 80053; 84703; 83690; 85025; 36415; 70491; 71260; 74177; 96361; 96374; 99285; J2405; J7030; Z7610; Q9967

== ENCOUNTER 2023-09-16 12:36 | Emergency (ER) | payer OTHER ==
[~2023-09-16] VITALS: Ht 167.6 cm; Wt 125.0 kg
[~2023-09-16 12:36] MED LIST changes: +ACET-2708 MT
[2023-09-16 12:41] VITALS: BP 110/78; PULSE 87; RESP 18; TEMP 98.7; O2SAT 99
[2023-09-16 15:26] LABS: BASOPHILS % 1.4 % (0.0-2.0); EOSINOPHILS % 9.2 % (0.0-5.0); HEMATOCRIT. 35.5 % (36.0-48.0); LYMPHOCYTES % 15.2 % (20.0-50.0); MEAN CORPUSCULAR HEMOGLOBIN 25.4 pg (28.0-32.0); MEAN CORPUSCULAR HGB CONC 31.1 g/dL (31.0-37.0); MEAN CORPUSCULAR VOLUME 81.9 fL (81.0-99.0); MEAN PLATELET VOLUME 8.8 fl (7.4-10.4); NEUTROPHILS % 65.2 % (40.0-76.0); PLATELET 267 x1000/uL (130-400); RED BLOOD CELL COUNT 4.34 mill/uL (4.2-5.4); RED CELL DISTRIBUTION WIDTH 17.3 % (11.6-14.6); WHITE BLOOD COUNT 8.6 x1000/uL (4.5-11.0)
[2023-09-16 15:35] LABS: CHLORIDE 107 mEq/L (98-107); INDEX HEMOLYSI 1 (1-3); INDEX ICTERIC 1 (1-4); INDEX LIPEMIC 1 (1-3); POTASSIUM 4.1 mEq/L (3.5-5.1); SODIUM 140 mEq/L (136-145)
[2023-09-16 15:40] LABS: HCG SCREEN NEGATIVE
[2023-09-16 15:55] LABS: ALANINE AMINOTRANSFERASE 26 IU/L (13-61); ALBUMIN 3.1 g/dL (3.4-5.0); ASPARTATE AMINOTRANSFERASE 16 IU/L (15-37); BILIRUBIN TOTAL 0.5 mg/dL (0.1-1.0); CALCIUM 8.1 mg/dL (8.5-10.1); CARBON DIOXIDE 27 mEq/L (21-32); CREATININE 0.5 mg/dL (0.6-1.3); GLUCOSE 193 mg/dL (70-105); TROPONIN I HIGH SENSITIVITY 47 ng/L (<54); UREA NITROGEN BLOOD 12 mg/dL (7-21)
[2023-09-16 19:42] LABS: TROPONIN I HIGH SENSITIVITY 50 ng/L (<54)
== END 2023-09-16 21:43 | disposition home or self-care (01) ==
LOC: ER 12:41
DX: R07.9 Chest pain, unspecified (principal); J45.909 Unspecified asthma, uncomplicated; E11.9 Type 2 diabetes mellitus without complications; I10 Essential (primary) hypertension; Z88.5 Allergy status to narcotic agent
CPT/HCPCS: 36415; 71045; 80053; 84484; 84703; 85025; 93005; 99285

== ENCOUNTER 2024-02-28 15:09 | Emergency (ER) | payer OTHER ==
[~2024-02-28] VITALS: Ht 165.1 cm; Wt 150.0 kg
[2024-02-28 15:15] VITALS: O2SAT 98
[2024-02-28] MEDS ORDERED: ACET-2708 MT (18:48)
[2024-02-28 21:55] VITALS: BP 158/92; PULSE 96; RESP 16; TEMP 97.6
== END 2024-02-28 22:15 | disposition home or self-care (01) ==
LOC: ER 15:09
DX: M79.605 Pain in left leg (principal); M79.604 Pain in right leg; J45.909 Unspecified asthma, uncomplicated; E11.9 Type 2 diabetes mellitus without complications; I11.0 Hypertensive heart disease with heart failure; I50.9 Heart failure, unspecified; Z88.5 Allergy status to narcotic agent
CPT/HCPCS: 93970; 99284

== ENCOUNTER 2024-03-10 17:47 | Emergency (ER) | payer OTHER ==
[~2024-03-10] VITALS: Ht 167.6 cm; Wt 150.0 kg
[2024-03-10 17:50] VITALS: O2SAT 100
[2024-03-10] MEDS ORDERED: ALBUTEROL (0.083%) 2.5MG/3ML NEB HHN STA (17:54)
[2024-03-10] MEDS: METHYLPREDNISOLONE SOD SUCC 125MG/2ML (ACT-O-VIAL) IV STA (17:54)
[2024-03-10] MEDS: MAGNESIUM 2 G PREMIX 50 ML IV STA (17:54)
[2024-03-10] MEDS ORDERED: ALBUTEROL (0.083%) 2.5MG/3ML NEB HHN NR (17:54)
[2024-03-10] MEDS ORDERED: IPRATROPIUM BROMIDE (0.02%) 0.5MG/2.5ML NEB HHN STA (17:54)
[2024-03-10] MEDS ORDERED: IPRATROPIUM BROMIDE (0.02%) 0.5MG/2.5ML NEB HHN NR (17:54)
[2024-03-10 18:35] LABS: BASOPHILS % 0.6 % (0.0-2.0); DIFFERENTIAL COMMENT 0; EOSINOPHILS % 1.4 % (0.0-5.0); HEMATOCRIT. 34.7 % (36.0-48.0); HEMOGLOBIN. 10.6 g/dL (12.0-16.0); LYMPHOCYTES % 15.5 % (20.0-50.0); MEAN CORPUSCULAR HGB CONC 30.4 g/dL (31.0-37.0); MEAN CORPUSCULAR VOLUME 78.8 fL (81.0-99.0); MEAN PLATELET VOLUME 8.5 fl (7.4-10.4); MONOCYTES % 7.4 % (2.0-8.0); NEUTROPHILS % 75.1 % (40.0-76.0); PLATELET 290 x1000/uL (130-400); RED BLOOD CELL COUNT 4.41 mill/uL (4.2-5.4); RED CELL DISTRIBUTION WIDTH 18.2 % (11.6-14.6); WHITE BLOOD COUNT 12.3 x1000/uL (4.5-11.0)
[2024-03-10 18:40] LABS: CHLORIDE 105 mEq/L (98-107); POTASSIUM 3.6 mEq/L (3.5-5.1); SODIUM 140 mEq/L (136-145)
[2024-03-10 18:41] LABS: CARBON DIOXIDE 30 mEq/L (21-32)
[2024-03-10 18:42] LABS: CALCIUM 8.3 mg/dL (8.7-10.4)
[2024-03-10 18:46] LABS: CREATININE 0.7 mg/dL (0.6-1.0); GLUCOSE 180 mg/dL (70-105); UREA NITROGEN BLOOD 13 mg/dL (9-23)
[2024-03-10 18:48] LABS: ALANINE AMINOTRANSFERASE 12 IU/L (10-49); ALBUMIN 3.9 g/dL (3.2-4.8); ASPARTATE AMINOTRANSFERASE 13 IU/L (<34); BILIRUBIN TOTAL 0.3 mg/dL (0.1-1.0); TROPONIN I HIGH SENSITIVITY 30 ng/L (3.0-34)
[2024-03-10 18:49] LABS: PROTEIN TOTAL 6.5 g/dL (6.0-8.3)
[2024-03-10 20:28] VITALS: BP 165/93; PULSE 115; RESP 21
[2024-03-10 20:56] LABS: TROPONIN I HIGH SENSITIVITY 26 ng/L (3.0-34)
[2024-03-10] MEDS ORDERED: ALBU18HF2 IH (20:59)
[2024-03-10] MEDS ORDERED: FLUT1DIS3 INH (20:59)
[2024-03-10 22:03] LABS: BG BASE EXCESS 3.8 mmol/L (-2.0-2.0); BG CARBOXYHEMOGLOBIN 0.1 % (0.5-1.5); BG DEOXYHEMOGLOBIN 4.1 % (0.0-5.0); BG FRACTION INSPIRED OXYGEN 21; BG HCO3 ACT 27.8 mmol/L (22.0-26.0); BG METHEMOGLOBIN 0.3 % (0.0-1.5); BG OXYGEN SATURATION 95.9 % (92.0-98.5); BG OXYHEMOGLOBIN 95.5 % (94.0-97.0); BG PCO2 39.8 mmHg (35.0-45.0); BG PH 7.462 (7.350-7.450); BG PO2 85.4 mmHg (75.0-100.0); BG TOTAL HEMOGLOBIN 12.8 g/dL (12.0-18.0); BG VENT MODE ROOM AIR
== END 2024-03-10 22:08 | disposition home or self-care (01) ==
LOC: ER 17:47
DX: J45.901 Unspecified asthma with (acute) exacerbation (principal); I11.0 Hypertensive heart disease with heart failure; I50.9 Heart failure, unspecified; E11.9 Type 2 diabetes mellitus without complications; J45.909 Unspecified asthma, uncomplicated; Z79.899 Other long term (current) drug therapy
CPT/HCPCS: 80053; 83880; 85025; 84484; 36415; 71045; 82805; 82375; 93005; 96365; 96375; 99285; 36600; J3475; J2930; Z7610

== ENCOUNTER 2024-03-22 17:22 | Emergency (ER) | payer OTHER ==
[~2024-03-22] VITALS: Ht 165.1 cm; Wt 150.0 kg
[~2024-03-22 17:22] MED LIST changes: +ALBU6.7H15 INH
[2024-03-22 17:23] VITALS: O2SAT 97
[2024-03-22] MEDS: ONDANSETRON 4MG ODT PO STA (17:45)
[2024-03-22] MEDS: MAGNESIUM/ALUMINUM HYDROXIDE/SIMETHICONE 30ML UDC PO STA (17:45)
[2024-03-22 17:57] LABS: HEMATOCRIT. 40.5 % (36.0-48.0); HEMOGLOBIN. 12.6 g/dL (12.0-16.0); MEAN CORPUSCULAR HEMOGLOBIN 24.7 pg (28.0-32.0); MEAN CORPUSCULAR HGB CONC 31.2 g/dL (31.0-37.0); MEAN CORPUSCULAR VOLUME 79.3 fL (81.0-99.0); MEAN PLATELET VOLUME 8.8 fl (7.4-10.4); PLATELET 267 x1000/uL (130-400); RED BLOOD CELL COUNT 5.11 mill/uL (4.2-5.4); RED CELL DISTRIBUTION WIDTH 18.8 % (11.6-14.6); WHITE BLOOD COUNT 15.2 x1000/uL (4.5-11.0)
[2024-03-22 18:02] LABS: CHLORIDE 100 mEq/L (98-107); POTASSIUM 4.3 mEq/L (3.5-5.1); SODIUM 133 mEq/L (136-145)
[2024-03-22 18:03] LABS: CARBON DIOXIDE 26 mEq/L (21-32)
[2024-03-22 18:04] LABS: CALCIUM 9.6 mg/dL (8.7-10.4)
[2024-03-22 18:08] LABS: GLUCOSE 246 mg/dL (70-105)
[2024-03-22 18:09] LABS: UREA NITROGEN BLOOD 17 mg/dL (9-23)
[2024-03-22 18:10] LABS: ALANINE AMINOTRANSFERASE 22 IU/L (10-49); ALBUMIN 4.2 g/dL (3.2-4.8); ASPARTATE AMINOTRANSFERASE 14 IU/L (<34)
[2024-03-22 18:11] LABS: BILIRUBIN TOTAL 0.6 mg/dL (0.1-1.0); PROTEIN TOTAL 6.9 g/dL (6.0-8.3)
[2024-03-22 18:22] LABS: DIFFERENTIAL COMMENT 1
[2024-03-22 19:04] LABS: ANISOCYTOSIS 1+; PLATELET ESTIMATE NORMAL
[2024-03-22 19:05] LABS: HYPOCHROMASIA 1+; MICROCYTOSIS 1+; OVALOCYTES 1+
[2024-03-22 20:54] LABS: CLARITY URINE CLEAR (CLEAR); COLOR URINE YELLOW (YELLOW); GLUCOSE URINE NEGATIVE (NEGATIVE); KETONES URINE TRACE (NEGATIVE); LEUKOCYTE ESTERASE URINE 1+ (NEGATIVE); NITRITE URINE NEGATIVE (NEGATIVE); OCCULT BLOOD URINE NEGATIVE (NEGATIVE); PH URINE 5.5 (4.5-8.0); PROTEIN URINE TRACE (NEGATIVE); SPECIFIC GRAVITY URINE 1.032 (1.005-1.030)
[2024-03-22] MEDS ORDERED: MAG-55 MT (21:01)
[2024-03-22] MEDS ORDERED: CEPH500C2 MT (21:01)
[2024-03-22] MEDS ORDERED: FAMO-135 MT (21:01)
[2024-03-22] MEDS: CEPHALEXIN 250MG CAPSULE PO NR (21:12)
[2024-03-22 21:13] VITALS: BP 157/97; PULSE 107; RESP 18; TEMP 98.5
[2024-03-22 21:32] LABS: BACTERIA URINE 2+; RBC URINE 0-2 /hpf (0-2); SQUAMOUS EPITHELIAL CELL URINE 1+ /lpf (RARE/1+)
== END 2024-03-22 21:20 | disposition home or self-care (01) ==
LOC: ER 17:22
DX: K29.70 Gastritis, unspecified, without bleeding (principal); N39.0 Urinary tract infection, site not specified; J45.909 Unspecified asthma, uncomplicated; E11.9 Type 2 diabetes mellitus without complications; I50.9 Heart failure, unspecified; I11.0 Hypertensive heart disease with heart failure; Z88.5 Allergy status to narcotic agent
CPT/HCPCS: 99285; 71045; 80053; 81003; 83690; 85025; 36415; 93005; Q0162

== ENCOUNTER 2024-08-01 17:31 | Emergency (ER) | payer OTHER ==
[~2024-08-01] VITALS: Ht 170.2 cm; Wt 165.0 kg
[~2024-08-01 17:31] MED LIST changes: -AZIT250T MT; +DILT240C91 MT; +FAMO-135 MT; +INSU100I28 SQ; +MAG-55 MT; +P20 MT; -P50 MT
[2024-08-01 17:40] VITALS: BP 157/90; PULSE 114; RESP 20; TEMP 98; O2SAT 96
[2024-08-01] MEDS ORDERED: IBUP-2029 MT (21:56)
== END 2024-08-01 22:00 | disposition home or self-care (01) ==
LOC: ER 17:31
DX: J06.9 Acute upper respiratory infection, unspecified (principal); J45.909 Unspecified asthma, uncomplicated; E11.9 Type 2 diabetes mellitus without complications; I10 Essential (primary) hypertension; Z79.899 Other long term (current) drug therapy; Z88.5 Allergy status to narcotic agent; Z20.822 Contact with and (suspected) exposure to COVID-19
CPT/HCPCS: 71045; 87426; 87804; 93005; 99285

== ENCOUNTER 2025-05-17 18:54 | Emergency (ER) | payer OTHER ==
[~2025-05-17] VITALS: Ht 170.2 cm; Wt 137.0 kg
[~2025-05-17 18:54] MED LIST changes: -ACET-2708 MT; -ALBU18HF2 IH; -ALBU6.7H15 INH; -ALBU6.7H3 INH; -AMLO5TAB88 MT; +AMLO5TAB88 PO; +ARIP10TA86 PO; +ASPI-1160 PO; -DILT240C91 MT; -FAMO-135 MT; -FLUT1DIS3 INH; +FOLI-43 PO; +FURO20TA4 PO; -IBUP-1525 MT; -INSU100I28 SQ; +LOSA50TA41 PO; -MAG-55 MT; -METF-414 MT; +METO25TA6 PO; -NAPR-1129 MT; -P20 MT; +THIA100T88 PO; -TOPUD MT
[2025-05-17 19:00] VITALS: BP 148/89; PULSE 112; RESP 16; TEMP 36.6; O2SAT 97
[2025-05-17 21:01] LABS: CLARITY URINE CLEAR (CLEAR); COLOR URINE YELLOW (YELLOW); GLUCOSE URINE 2+ (NEGATIVE); KETONES URINE TRACE (NEGATIVE); LEUKOCYTE ESTERASE URINE 1+ (NEGATIVE); NITRITE URINE NEGATIVE (NEGATIVE); OCCULT BLOOD URINE NEGATIVE (NEGATIVE); PH URINE 5.5 (4.5-8.0); PROTEIN URINE TRACE (NEGATIVE); UROBILINOGEN URINE 0.2 E.U./dL (0.2-1.0)
[2025-05-17 21:11] LABS: BACTERIA URINE NONE SEEN; RBC URINE 0-2 /hpf (0-2); SQUAMOUS EPITHELIAL CELL URINE FEW /lpf (RARE/1+)
[2025-05-17 21:14] VITALS: TEMP 98.6
[2025-05-17] MEDS: ACETAMINOPHEN 325MG TABLET PO ONE (21:14)
[2025-05-17] MEDS ORDERED: CEPH500C2 MT (21:15)
== END 2025-05-17 22:02 | disposition home or self-care (01) ==
LOC: ER 18:54
DX: N39.0 Urinary tract infection, site not specified (principal); J45.909 Unspecified asthma, uncomplicated; E11.9 Type 2 diabetes mellitus without complications; I10 Essential (primary) hypertension; F15.90 Other stimulant use, unspecified, uncomplicated; Z79.899 Other long term (current) drug therapy; Z79.82 Long term (current) use of aspirin; Z88.5 Allergy status to narcotic agent
CPT/HCPCS: 81003; 93005; 99284

== ENCOUNTER 2025-05-25 19:02 | Emergency (ER) | payer OTHER ==
[~2025-05-25] VITALS: Ht 170.2 cm; Wt 141.0 kg
[~2025-05-25 19:02] MED LIST changes: +CEPH500C2 MT
[2025-05-25 19:07] VITALS: TEMP 36.8
[2025-05-25] MEDS: METHYLPREDNISOLONE SOD SUCC 125MG/2ML (ACT-O-VIAL) IV ONE (21:30)
[2025-05-25] MEDS ORDERED: MORPHINE SULFATE 4 MG/ML INJ (FOR IV/IM USE) IV ONE (21:30)
[2025-05-25] MEDS: ONDANSETRON HCL 4MG/2ML INJ IV ONE (21:30)
[2025-05-25 21:41] LABS: BASOPHILS % 0.8 % (0.0-2.0); EOSINOPHILS % 8.0 % (0.0-5.0); HEMATOCRIT. 34.7 % (36.0-48.0); HEMOGLOBIN. 10.9 g/dL (12.0-16.0); LYMPHOCYTES % 20.2 % (20.0-50.0); MEAN PLATELET VOLUME 8.7 fl (7.4-10.4); MONOCYTES % 7.4 % (2.0-8.0); NEUTROPHILS % 63.6 % (40.0-76.0); PLATELET 224 x1000/uL (130-400); RED BLOOD CELL COUNT 4.14 mill/uL (4.2-5.4); RED CELL DISTRIBUTION WIDTH 16.7 % (11.6-14.6)
[2025-05-25] MEDS: IPRATROPIUM/ALBUTEROL 0.5-3(2.5)MG/3ML NEB HHN ONE (21:47)
[2025-05-25 21:50] VITALS: PULSE 120; RESP 20; O2SAT 97
[2025-05-25 21:57] LABS: CREATININE 0.9 mg/dL (0.6-1.0); TROPONIN I HIGH SENSITIVITY 22 ng/L (3.0-34)
[2025-05-25 21:58] LABS: INR 1.0; UREA NITROGEN BLOOD 15 mg/dL (9-23)
[2025-05-25 21:59] LABS: ASPARTATE AMINOTRANSFERASE 13 IU/L (<34)
[2025-05-25 22:00] LABS: BILIRUBIN DIRECT 0.1 mg/dL (<=3.0); BILIRUBIN TOTAL 0.4 mg/dL (0.1-1.0); PROTEIN TOTAL 6.3 g/dL (6.0-8.3)
[2025-05-25] MEDS: KETOROLAC 30MG/ML VIAL IV ONE (22:00)
[2025-05-25 22:58] LABS: CLARITY URINE CLOUDY (CLEAR); COLOR URINE DARK YELLOW (YELLOW); GLUCOSE URINE NEGATIVE (NEGATIVE); PH URINE 5.5 (4.5-8.0); PROTEIN URINE 1+ (NEGATIVE); SPECIFIC GRAVITY URINE 1.032 (1.005-1.030)
[2025-05-25 22:59] LABS: KETONES URINE TRACE (NEGATIVE); LEUKOCYTE ESTERASE URINE 1+ (NEGATIVE); NITRITE URINE NEGATIVE (NEGATIVE); OCCULT BLOOD URINE NEGATIVE (NEGATIVE); UROBILINOGEN URINE 1.0 E.U./dL (0.2-1.0)
[2025-05-25 23:02] LABS: *AMPHETAMINES SCREEN URINE NEGATIVE (NEGATIVE); *BARBITURATES SCREEN URINE NEGATIVE (NEGATIVE); *BENZODIAZEPINES SCREEN URINE NEGATIVE (NEGATIVE); *COCAINE SCREEN URINE NEGATIVE (NEGATIVE); CANNABINOID URINE SCREEN NEGATIVE (NEGATIVE); METHADONE URINE SCREEN NEGATIVE (NEGATIVE); OPIATES URINE SCREEN NEGATIVE (NEGATIVE); PHENCYCLIDINE URINE SCREEN NEGATIVE (NEGATIVE)
[2025-05-25 23:03] LABS: ECSTASY MDMA SCREEN URINE NEGATIVE (NEGATIVE)
[2025-05-25 23:04] LABS: RBC URINE NONE SEEN /hpf (0-2); SQUAMOUS EPITHELIAL CELL URINE 1+ /lpf (RARE/1+)
[2025-05-25 23:05] LABS: BACTERIA URINE 3+
[2025-05-25] MEDS ORDERED: P50 MT (23:35)
[2025-05-25] MEDS ORDERED: ALBU90AE INH (23:35)
[2025-05-25] MEDS ORDERED: CEFP200T13 MT (23:35)
[2025-05-25] MEDS ORDERED: TOPUD PO (23:35)
[2025-05-25] MEDS ORDERED: IBUP-2028 MT (23:35)
[2025-05-26] MEDS: METHYLPREDNISOLONE SOD SUCC 125MG/2ML (ACT-O-VIAL) IV NR (00:38)
[2025-05-26] MEDS: ONDANSETRON HCL 4MG/2ML INJ IV NR (00:39)
[2025-05-26] MEDS: KETOROLAC 30MG/ML VIAL IV NR (00:39)
[2025-05-26] MEDS: CEFTRIAXONE 1GM/50ML 50 ML IV NR (00:40)
[2025-05-26] MEDS: CEFTRIAXONE 1GM/50ML 50 ML IV ONE (00:41)
[2025-05-26] MEDS: MORPHINE SULFATE 4 MG/ML INJ (FOR IV/IM USE) IV NR (00:43)
[2025-05-26] MEDS ORDERED: CEFTRIAXONE 1GM/50ML 50 ML IV ONE (00:45)
[2025-05-26 01:00] VITALS: PULSE 108; RESP 20; O2SAT 93
[2025-05-26] MEDS: IPRATROPIUM/ALBUTEROL 0.5-3(2.5)MG/3ML NEB HHN NR (01:00)
[2025-05-26] MEDS: ALBUTEROL (0.083%) 2.5MG/3ML NEB HHN ONE (01:00)
[2025-05-26] MEDS: ALBUTEROL (0.083%) 2.5MG/3ML NEB HHN NR (01:01)
[2025-05-26 02:11] VITALS: BP 165/85; PULSE 120; RESP 20; O2SAT 95
== END 2025-05-26 02:51 | disposition home or self-care (01) ==
LOC: ER 19:02
DX: N39.0 Urinary tract infection, site not specified (principal); J45.901 Unspecified asthma with (acute) exacerbation; F15.90 Other stimulant use, unspecified, uncomplicated; E11.9 Type 2 diabetes mellitus without complications; I11.0 Hypertensive heart disease with heart failure; I50.9 Heart failure, unspecified; F17.210 Nicotine dependence, cigarettes, uncomplicated; F10.90 Alcohol use, unspecified, uncomplicated; Z79.82 Long term (current) use of aspirin; Z79.899 Other long term (current) drug therapy; Z92.3 Personal history of irradiation; Z88.5 Allergy status to narcotic agent; Y90.9 Presence of alcohol in blood, level not specified
CPT/HCPCS: 80076; 80305; 80048; 81003; 80320; 83880; 83690; 85025; 85610; 84484; 36415; 71045; 93005; 99285; 94640; Z7610 ×5; J0696; J1885; J2919; J2405; J2270; 94664; G0480

== ENCOUNTER 2025-06-09 16:36 | Emergency (ER) | payer OTHER ==
[~2025-06-09] VITALS: Ht 170.2 cm; Wt 150.0 kg
[~2025-06-09 16:36] MED LIST changes: +ALBU90AE INH; +CEFP200T13 MT; +IBUP-2028 MT; +P50 MT; +TOPUD PO
[2025-06-09 16:37] VITALS: O2SAT 97
[2025-06-09 19:26] LABS: BASOPHILS % 0.8 % (0.0-2.0); EOSINOPHILS % 5.0 % (0.0-5.0); HEMATOCRIT. 34.7 % (36.0-48.0); HEMOGLOBIN. 11.0 g/dL (12.0-16.0); LYMPHOCYTES % 20.2 % (20.0-50.0); MEAN PLATELET VOLUME 8.8 fl (7.4-10.4); MONOCYTES % 8.8 % (2.0-8.0); NEUTROPHILS % 65.2 % (40.0-76.0); PLATELET 280 x1000/uL (130-400); RED BLOOD CELL COUNT 4.13 mill/uL (4.2-5.4); RED CELL DISTRIBUTION WIDTH 15.2 % (11.6-14.6)
[2025-06-09] MEDS: FUROSEMIDE 40MG/4ML VIAL IV ONE (19:28)
[2025-06-09] MEDS: ASPIRIN 81MG TABLET PO ONE (19:29)
[2025-06-09 19:38] LABS: INR 0.9
[2025-06-09 19:43] LABS: CREATININE 0.7 mg/dL (0.6-1.0); TROPONIN I HIGH SENSITIVITY 28 ng/L (3.0-34)
[2025-06-09 19:44] LABS: UREA NITROGEN BLOOD 10 mg/dL (9-23)
[2025-06-09 19:45] LABS: ASPARTATE AMINOTRANSFERASE 16 IU/L (<34)
[2025-06-09 19:46] LABS: BILIRUBIN DIRECT < 0.1 mg/dL (<=3.0); BILIRUBIN TOTAL 0.3 mg/dL (0.1-1.0); PROTEIN TOTAL 6.7 g/dL (6.0-8.3)
[2025-06-09 19:47] LABS: HCG SCREEN NEGATIVE
[2025-06-09 23:18] VITALS: BP 124/80; PULSE 111; RESP 18; TEMP 36.7; O2SAT 96
== END 2025-06-09 23:33 | disposition short-term general hospital (02) ==
LOC: ER 16:36 → EDBEDREQTM 22:13 → EDBEDREQ 22:13 → ER 23:33 → CMPBEDREQ 06-11 08:04
DX: R06.02 Shortness of breath (principal); R06.09 Other forms of dyspnea; E11.9 Type 2 diabetes mellitus without complications; I11.0 Hypertensive heart disease with heart failure; I50.9 Heart failure, unspecified; J44.89 Other specified chronic obstructive pulmonary disease; Z79.82 Long term (current) use of aspirin; Z79.899 Other long term (current) drug therapy; Z88.5 Allergy status to narcotic agent
CPT/HCPCS: 80076; 80048; 84703; 83880; 85025; 85379; 85610; 85730; 84484; 36415; 71045; 93970; 93005; 96374; 99285; Z7610 ×3; J1938